=== PATIENT | male | born 1965 | race Caucasian/White ===

== ENCOUNTER 2020-12-11 11:32 | Emergency (ER) | payer BC, SELFPAY ==
--- NOTE | ~2020-12-11 | XR_ITS ---
XR chest 1V portable 12/11/2020 13:28 Indication: Fever, shortness of breath and cough Procedure: AP portable chest Comparison: No prior studies for comparison. Findings: Heart size normal. No focal air space disease, pulmonary edema, pleural effusion or suspect ed pneumothorax. Impression: 1: No acute cardiopulmonary disease. Reviewed, dictated and finalized at location B. Impression: 1: No acute cardiopulmonary disease.
[2020-12-11 11:35] VITALS: BP 148/101; PULSE 112; RESP 20; TEMP 36.2; O2SAT 100
[2020-12-11 13:13] VITALS: BP 140/100; PULSE 86; RESP 18; O2SAT 100
--- NOTE | 2020-12-11 13:41 | ECG_ITS ---
Measurements Intervals [place] Rate: 81 P: 33 NC: 122 QRS: -34 QRSD: 85 T: 37 QT: 346 QTc: 403 Interpretive Statements SINUS RHYTHM LEFT AXIS DEVIATION INCOMPLETE RIGHT BUNDLE BRANCH BLOCK BORDERLINE ECG Electronically Signed On 12-11-2020 14:52:25 CDT by Honorio Amanda D.O.
--- NOTE | 2020-12-11 13:42 | ED.FEVER ---
HPI - Fever General Chief Complaint: Fever Stated Complaint: fever Time Seen by Provider: 12/11/20 13:22 Source: patient Mode of arrival: ambulatory Limitations: no limitations History of Present Illness HPI Narrative: This is a 55 year old male that presents to the ER for cold symptoms since this morning. Reports fever, cough, congestion, headache, myalgias and shortness of breath. Reports recent contact with Covid positive persons. Reports he is a current smoker and has history of COPD. He has not tried taking his Albuterol inhaler yet. Denies chest pain or lower extremity edema. Related Data Allergies Allergy/AdvReac Type Severity Reaction Status Date / Time Penicillins AdvReac Unknown Verified 12/11/20 13:14 Review of Systems Review of Systems: Narrative: CONSTITUTIONAL: Reports fever ENT: Reports congestion CARDIOVASCULAR: Denies chest pain or edema. RESPIRATORY: Reports cough and dyspnea. All systems reviewed & are unremarkable except as noted in HPI and below PMFSH Past Medical History Medical History (Updated 12/11/20 @ 15:39 by Ivone Cobb PA-C) History of COPD History of coronary artery disease Social History Social History (Updated 12/11/20 @ 13:45 by Ivone Cobb PA-C) Smoking status: Current every day smoker Exam Narrative: Exam Narrative: GENERAL: Well-appearing, well-nourished, and in no acute distress. HEAD: Normocephalic, atraumatic. EYES: EOMI. ENT: Nares clear, no rhinorrhea or epistaxis. Mucous membranes moist. Oropharynx without tonsillar hypertrophy exudate or other lesions. Bilateral TMs pearly mckeon non-bulging NECK: Supple. No adenopathy or masses. CHEST: Clear to auscultation. No respiratory distress. No wheezes rales or rhonchi HEART: Regular rate and rhythm. No murmur heard. Normal peripheral pulses. EXTREMITIES: Normal range of motion. No edema. SKIN: Warm, dry, no rash. NEURO: No focal deficits. Alert and oriented x3. PSYCH: Normal mood and affect Course Vital Signs Vital signs: Vital Signs Temperature 97.1 F L 12/11/20 11:35 Pulse Rate 112 H 12/11/20 11:35 Respiratory Rate 20 12/11/20 11:35 Blood Pressure 148/101 H 12/11/20 11:35 Pulse Oximetry 100 12/11/20 11:35 Temperature 97.1 F L 12/11/20 11:35 Pulse Rate 81 12/11/20 15:17 Respiratory Rate 22 H 12/11/20 15:17 Blood Pressure 131/99 H 12/11/20 15:17 Pulse Oximetry 99 12/11/20 15:17 MDM - Fever MDM Narrative Medical decision making narrative: Patient presents the emergency department for cold symptoms since this morning. He is afebrile and nontoxic-appearing. Tachycardic upon arrival, this normalized without intervention. Oxygen saturation is normal on room air. CBC is without leukocytosis. Metabolic panel with mild transaminitis, likely due to viral infection. Influenza screen was negative. Chest x-ray is clear. SARS-CoV-2 was sent. EKG without concerning findings. Patient denies any active chest pain. Patient was updated on case findings. He was instructed on care of viral infection. He is to follow-up with primary care doctor. He was given warnings to return to the ER Lab Data Attestation: I reviewed the patient's lab results. Result diagrams: 12/11/20 13:55 12/11/20 13:55 Labs: Lab Results 12/11/20 12/11/20 12/11/20 Range/Units 13:45 13:55 13:55 WBC (4.5-10.0) K/mm3 RBC (4.6-6.20) M/mm3 Hgb (14.0-18.0) g/dL Hct (42.0-52.0) % MCV (80-100) fl MCH (26-34) pg MCHC (32-36) g/dl RDW (11.5-14.5) % Plt Count (150-375) k/mm3 MPV (7.4-10.4) fl Immature Gran % (Auto) (0-0.5) % Neut % (Auto) (45.5-73.1) % Lymph % (Auto) (18.3-44.2) % [place] % (Auto) (2.6-8.5) % Eos % (Auto) (0-4.4) % Baso % (Auto) (0.2-1.2) % Lymph # (Auto) (0.9-3.2) K/mm3 [place] # (Auto) (0.1-0.6) K/mm3 Eos # (Auto) (0-0.3) K/mm3 Baso # (Auto) (0.0-0.1) K/mm3 Abs Immat
[2020-12-11 14:00] VITALS: BP 131/92; PULSE 79; RESP 23; O2SAT 99
[2020-12-11 14:15] LABS: Lactate Dehydrogenase 394 U/L (313-618)
[2020-12-11 14:47] LABS: Basophils Absolute Auto 0.1 K/mm3 (0.0-0.1); Basophils Percent Auto 1.1 % (0.2-1.2); Eosinophils Absolute Auto 0.2 K/mm3 (0-0.3); Eosinophils Percent Auto 2.5 % (0-4.4); Hematocrit 53.1 % (42.0-52.0); Hemoglobin 17.9 g/dL (14.0-18.0); Immature Granulocyte Absolute 0.03 K/mm3 (0.00-0.031); Immature Granulocyte Percent A 0.4 % (0-0.5); Lymphocytes Absolute Auto 2.19 K/mm3 (0.9-3.2); Lymphocytes Percent Auto 27.7 % (18.3-44.2); Mean Corpuscular HGB Conc 33.7 g/dl (32-36); Mean Corpuscular Hemoglobin 30.5 pg (26-34); Mean Corpuscular Volume 90.5 fl (80-100); Monocytes Absolute Auto 0.9 K/mm3 (0.1-0.6); Monocytes Percent Auto 11.6 % (2.6-8.5); Neutrophils Absolute Auto 4.5 K/mm3 (1.3-6.7); Neutrophils Percent Auto 56.7 % (45.5-73.1); Platelet Count Result 416 k/mm3 (150-375); Red Blood Count 5.87 M/mm3 (4.6-6.20); Red Cell Distribution Width 12.5 % (11.5-14.5); White Blood Count 7.9 K/mm3 (4.5-10.0)
[2020-12-11 15:02] LABS: Alanine Aminotransferase 72 U/L (4-50); Albumin Level 4.2 g/dL (3.5-5.1); Alkaline Phosphatase 78 U/L (38-126); Anion Gap 5 mmol/L (8-16); Aspartate Amino Transferase 74 U/L (17-59); Bilirubin,Total 0.6 mg/dL (0.2-1.3); Blood Urea Nitrogen 13 mg/dL (9-20); Calcium 9.2 mg/dL (8.4-10.2); Carbon Dioxide 29 mmol/L (22-30); Chloride 104 mmol/L (98-107); Estimated CRCL calculation 100 ml/min; Estimated Glomerular Filt Rate > 60; Glucose 101 mg/dL (75-110); Sodium 138 mmol/L (137-145)
[2020-12-11 15:17] VITALS: BP 131/99; PULSE 81; RESP 22; O2SAT 99
[2020-12-11 15:46] VITALS: BP 170/84; PULSE 85; RESP 17; O2SAT 98
[2020-12-12 20:46] LABS: SARS-CoV-2 RNA PCR Negative
== END 2020-12-11 15:47 | disposition home or self-care (01) ==
PROVIDERS: Physician Assistant; Emergency Provider Family Medicine; PCP Internal Medicine
DX: R50.9 Fever, unspecified (principal); R05 Cough; R06.02 Shortness of breath; Z20.822 Contact with and (suspected) exposure to COVID-19; J44.9 Chronic obstructive pulmonary disease, unspecified; I25.10 Atherosclerotic heart disease of native coronary artery without angina pectoris; F17.200 Nicotine dependence, unspecified, uncomplicated; I45.10 Unspecified right bundle-branch block
CPT/HCPCS: 36415; 71045; 80053; 82728; 83615; 85025; 87804; 93005; 99283; C9803; U0003; U0005